=== PATIENT | female | born 1990 | race Caucasian/White ===

== ENCOUNTER 2017-12-09 13:54 | Emergency (ER) ==
[2017-12-09] MEDS ORDERED: Neomycin/Polymyxin/HC Otic Solution 10 ML BOT ONE (14:33)
[2017-12-09] MEDS ORDERED: AMOXicillin 250 MG CAP ONE (14:33)
== END 2017-12-09 14:45 | disposition home or self-care (01) ==
LOC: MADERS 13:54
DX: H60.92 Unspecified otitis externa, left ear (principal); H66.42 Suppurative otitis media, unspecified, left ear
CPT/HCPCS: 99282